=== PATIENT | female | born 1960 | race Caucasian/White ===

== ENCOUNTER 2017-09-30 10:40 | Observation (INO) | payer OTHER ==
--- NOTE | 2017-09-30 11:28 | EKG ---
Test Date: 2017-09-30 Test Time: 11:03:30 Nuclear Medicine Officer: [place] MEASUREMENT RESULTS: Intervals: Rate: 119 WI: 166 QRSD: 150 QT: 376 QTc: 528 Wheeler: P: 80 WI: 166 QRS: 81 T: 262 INTERPRETIVE STATEMENTS: Sinus tachycardia Left bundle branch block Abnormal ECG No previous ECG available for comparison Electronically Signed On 09-30-17 11:27:49 CDT by Satish Loyd
[2017-09-30 11:30] LABS: Absolute Lymphocytes (CBC) 1.2 K/uL (0.7-4.9); Absolute Monocytes 0.4 K/uL (0.1-1.3); Absolute Neutrophil 12.7 K/uL (1.8-8.0); Basophils % 0.2 % (0-1.3); Eosinophils % 0.3 % (0-4.4); Hematocrit 47.1 % (36.0-45.0); Lymphocytes % 8.1 % (15.3-44.8); MCH 31.2 pg (27.0-35.0); MCV 88.8 fL (80-100); MPV 7.3 fL (7.6-11.3); Monocytes % 2.8 % (3.3-12.3); RBC Red Blood Cell Count 5.31 M/uL (3.86-4.86)
[2017-09-30 11:37] LABS: Protime INR 0.97
--- NOTE | 2017-09-30 11:55 | ER ---
Nurse's Notes [facility] Name: Pauline Mcknight Age: 56 yrs Sex: Female : 1960 Arrival Date: 09/30/2017 Time: 10:44 Bed 27 Private MD: Out, [facility] Diagnosis: Essential (primary) hypertension;Other chest pain;Hypomagnesemia Presentation: 09/30 10:49 Presenting complaint: Patient states: nausea, pain, not feeling well started last ch night. my blood pressure as been 180' to 200's over 120's. I got hurt at work and my doctor put me on tazanadine for it, three times a day. that was making my blood pressure go low. I stoped taking my bp meds Saturday but kept taking the tazanadine. weakness dizzyness started Saturday and just etting worse. Nausea, vomiting, not feeling well now.. Transition of care: patient was not received from another setting of care. Onset of symptoms was September 24, 2017. Risk Assessment: Do you want to hurt yourself or someone else? Patient reports no desire to harm self or others. Initial Sepsis Screen: Does the patient meet any 2 criteria? No. Patient's initial sepsis screen is negative. Does the patient have a suspected source of infection? No. Patient's initial sepsis screen is negative. Care prior to arrival: None. 10:49 Method Of Arrival: Wheelchair 10:49 Acuity: ROCKY 3 ch Triage Assessment: 10:55 General: Appears in no apparent distress. comfortable, Behavior is calm, cooperative, ch appropriate for age. Pain: Complains of pain in head and chest Pain currently is 9 out of 10 on a pain scale. Pain began suddenly. GI: Reports nausea, vomiting. 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 ch Historical: - Allergies: 10:55 PENICILLINS; ch 10:55 Sulfa (Sulfonamide Antibiotics); ch 10:55 Iv dye; ch 10:55 Latex, Natural Rubber; ch 10:55 Morphine; ch - Home Meds: 10:55 tizanidine 2 mg oral tab 2 tabs every 8 hours [Active]; Cymbalta 60 mg oral cpDR 1 cap ch once daily [Active]; Librax (with clidinium) 5-2.5 mg Oral cap 1 cap 4 times per day [Active]; Bentyl 20 mg Oral tab 1 tab for as needed [Active]; Protonix 40 mg Oral grps 1 packet once daily [Active]; lisinopril 20 mg Oral tab 1 tab once daily [Active]; Crestor 20 mg oral tab 1 tab once daily [Active]; Seroquel Oral [Active]; - PMHx: 10:55 Hyperlipidemia; recover addict; 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 - Social history:: Smoking status: Patient uses tobacco products, electronic vap, with nicotine, Patient/guardian denies using alcohol, street drugs. - Ebola Screening: : Patient negative for fever greater than or equal to 101.5 degrees Fahrenheit, and additional compatible Ebola Virus Disease symptoms Patient denies exposure to infectious person Patient denies travel to an Ebola-affected area in the 21 days before illness onset No symptoms or risks identified at this time. Screenin:51 Abuse screen: Denies threats or abuse. Denies injuries from another. Nutritional iw screening: No deficits noted. Tuberculosis screening: No symptoms or risk factors identified. 14:59 Fall Risk IV access (20 points). iw Assessment: 11:49 Reassessment: Dr. Montero at bedside to assess pt, successful IV placement to REJ, iw family remains at bedside, new orders given. 12:31 Reassessment: pt still c/o headache 10/21, 2nd dose of fentanyl given, pt reports jaw iw pain and chest pain has resolved, pt remains hypertensive at 172/117, ERP notified, new orders for repeat EKG. 13:08 Reassessment: pt still c/o headache, BP down to 165/110, HR=82, family at bedside. iw 13:18 GI: Abdomen is non-distended. iw 14:40 Reassessment: Patient appears in no apparent distress at this time. Patient and/or iw family updated on plan of care and expected duration. Pain level reassessed. Patient is alert, oriented x 3, equal unlabored respirations, skin warm/dry/pink. Dr. Loyd at bedside to assess pt Patient states feeling better. Patient states symptoms have improved. Vital Signs: 10:55 BP 156 / 111; Pulse 124; Resp 22; Temp 97.6; Pulse Ox 97% on R/A; Weight 68.04 kg; ch Height 5 ft. 7 in. (170.18 cm); Pain 9/10; 11:32 BP 156 / 116; Pulse 105; Resp 18 S; Pulse Ox 96% on R/A; Pain 9/10; iw 12:17 BP 171 / 121; Pulse 74; Resp 16; Pulse Ox 95% on R/A; iw 13:07 BP 165 / 110; Pulse 78; Resp 18; Pulse Ox 96% on R/A; Pain 8/10; iw 13:12 BP 164 / 106; Pulse 81; Resp 18; Pulse Ox 95% on R/A; iw 13:18 BP 157 / 100; Pulse 84; Resp 16; Pulse Ox 96% on R/A; Pain 10/10; iw 14:58 BP 148 / 90; Pulse 84; Resp 16; Pulse Ox 96% on R/A; iw 10:55 Body Mass Index 23.49 (68.04 kg, 170.18 cm) ED Course: 10:44 Patient arrived in ED. sb2 10:44 Out, [facility] is Private Physician. sb2 10:51 Triage completed. ch 10:55 Arm band placed on left wrist. Patient placed. 11:00 Patient has correct armband on for positive identification. Placed in gown. Bed in low iw position. Call light in reach. Side rails up X2. 11:05 Shayna Marquez, ANGELA is Primary Nurse. iw 11:08 Kenneth Montero MD is Attending Physician. sissy 11:14 EKG done, by emergency room technician. reviewed by Kenneth Montero MD. at1 11:30 Missed attempt(s): 22 gauge in right antecubital area. 24 gauge in left forearm. iw Bleeding controlled, band aid applied, catheter tip intact. 11:45 Missed attempt(s): 24 gauge in right wrist. Bleeding controlled, band aid applied, jp3 catheter tip intact. 11:53 X-ray completed. Portable x-ray completed in exam room. Patient tolerated procedure mh1 well. 11:53 Kayla Garcia MD is Hospitalizing Provider. sissy 11:55 XRAY Chest (1 view) In Process Unspecified. EDMS 11:55 Inserted saline lock: 18 gauge in right EJ, using aseptic technique. IV inserted by Dr. jennifer Montero. 12:21 Notified ED physician of a critical lab result(s). Troponin 0.52. dm5 13:08 No provider procedures requiring assistance completed. Patient admitted, IV remains in iw place. 13:14 EKG done, by emergency room technician. reviewed by Kenneth Montero MD Repeat EKG. at1 Administered Medications: 11:48 CANCELLED (Duplicate Order): NS 0.9% 1000 ml IV at 1 bolus Per protocol; 1000 mL bolus sissy 12:00 Drug: Lopressor 5 mg Route: IVP; Site: right jugular; iw 12:00 Drug: Lopressor (metoprolol TARTRATE) 50 mg Route: PO; iw 15:06 Follow up: Response: No adverse reaction iw 12:00 Drug: fentaNYL (PF) 25 mcg Route: IVP; Site: right jugular; iw 12:15 Follow up: Response: No adverse reaction; Pain is unchanged, physician notified iw 12:05 Drug: Ativan 0.5 mg Route: IVP; Site: right jugular; iw 13:30 Follow up: Response: No adverse reaction iw 12:10 Drug: Lopressor 5 mg Route: IVP; Site: right jugular; iw 12:25 Drug: Lopressor 5 mg Route: IVP; Site: right jugular; iw 12:40 Follow up: Response: No adverse reaction; Blood pressure is unchanged iw 13:15 Follow up: Response: No adverse reaction; Blood pressure is unchanged iw 12:30 Drug: fentaNYL (PF) 25 mcg Route: IVP; Site: right jugular; iw 12:45 Follow up: Response: No adverse reaction; Pain is decreased iw 13:00 Drug: Lovenox 1 mg/kg Route: Sub-Q; Site: right lower abdomen; iw 15:00 Follow up: Response: No adverse reaction iw 13:00 Drug: Nitro-Bid Ointment 2 % 1 inches Route: Transdermal; Site: anterior chest wall; iw 13:05 Drug: hydrALAZINE 10 mg Route: IV; Rate: per protocol; Site: right jugular; iw 13:35 Follow up: IV Status: Completed infusion iw 13:06 Drug: Tylenol 650 mg Route: PO; iw 13:45 Follow up: Response: No adverse reaction iw 13:06 Drug: hydrALAZINE 10 mg Route: PO; iw 15:02 Follow up: Response: No adverse reaction; Blood pressure is lowered iw 13:07 Drug: Magnesium Sulfate 2 grams Route: IVPB; Infused Over: 2 hrs; Site: right jugular; iw 14:15 Follow up: IV Status: Completed infusion iw 13:19 Drug: Pepcid 20 mg Route: IVP; Site: right jugular; iw 13:35 Follow up: Response: No adverse reaction iw 13:19 Drug: Aspirin Chewable Tablet 162 mg Route: PO; iw 13:48 Follow up: Response: No adverse reaction iw 13:19 Drug: PlaVIX 600 mg Route: PO; iw 14:00 Follow up: Response: No adverse reaction iw 14:20 Drug: Rocephin - (cefTRIAXone) 1 grams Route: IVPB; Infused Over: 30 mins; Site: right iw jugular; 14:30 Follow up: IV Status: Completed infusion iw 14:20 Drug: Dilaudid 0.5 mg Route: IVP; Site: right jugular; iw 14:45 Follow up: Response: No adverse reaction; Pain is decreased iw 14:20 Drug: Zofran 4 mg Route: IVP; Site: right jugular; iw 14:45 Follow up: Response: No adverse reaction iw 14:58 Not Given (Physician Discretion): Dilaudid 0.5 mg IVP once iw 15:01 Not Given (Other Intervention Used): Ativan 0.5 mg IVP once iw Outcome: 11:54 Decision to Hospitalize by Provider. sissy 14:59 Admitted to Tele accompanied by tech, via stretcher, with chart, Report called to jennifer Nolasco RN 14:59 Condition: improved 14:59 Discharge instructions given to patient, family, Instructed on the need for admit, Demonstrated understanding of instructions. 15:21 Patient left the ED. ss Signatures: Dispatcher [employer] Lorena Solo, RN Socorro Noe ch, RN RN Kenneth Vegas MD MD cha Harvey, Martha 1 Shayna Marquez RN RN iw Smirch, Shelby, RN RN ss Gonzales, Amanda, coremaker supervisor EKG Tat1 Kellen Breen sb2 Romeo Sotelo jp3
--- NOTE | 2017-09-30 11:55 | EDPHYS ---
Physician Documentation [facility] Name: Pauline Mcknight Age: 56 yrs Sex: Female : 1960 Arrival Date: 09/30/2017 Time: 10:44 Bed 27 Private MD: Out, [facility] ED Physician Kenneth Montero HPI: 09/30 11:50 This 56 yrs old Female presents to ER via Wheelchair with complaints of Blood sissy Pressure Problem, Nausea/Vomiting/Diarrhea. 11:50 The patient presents to the emergency department with nausea. Onset: The sissy symptoms/episode began/occurred 2 day(s) ago. Possible causes: unknown. Associated signs and symptoms: Pertinent positives: abdominal pain, nausea. Severity of symptoms: At their worst the symptoms were mild moderate in the emergency department the symptoms are unchanged. The patient has experienced similar episodes in the past, a few times. 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 ch Historical: - Allergies: 10:55 PENICILLINS; ch 10:55 Sulfa (Sulfonamide Antibiotics); ch 10:55 Iv dye; ch 10:55 Latex, Natural Rubber; ch 10:55 Morphine; ch - Home Meds: 10:55 tizanidine 2 mg oral tab 2 tabs every 8 hours [Active]; Cymbalta 60 mg oral cpDR 1 cap ch once daily [Active]; Librax (with clidinium) 5-2.5 mg Oral cap 1 cap 4 times per day [Active]; Bentyl 20 mg Oral tab 1 tab for as needed [Active]; Protonix 40 mg Oral grps 1 packet once daily [Active]; lisinopril 20 mg Oral tab 1 tab once daily [Active]; Crestor 20 mg oral tab 1 tab once daily [Active]; Seroquel Oral [Active]; - PMHx: 10:55 Hyperlipidemia; recover addict; 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 - Social history:: Smoking status: Patient uses tobacco products, electronic vap, with nicotine, Patient/guardian denies using alcohol, street drugs. - Ebola Screening: : Patient negative for fever greater than or equal to 101.5 degrees Fahrenheit, and additional compatible Ebola Virus Disease symptoms Patient denies exposure to infectious person Patient denies travel to an Ebola-affected area in the 21 days before illness onset No symptoms or risks identified at this time. ROS: 11:51 Constitutional: Negative for fever, chills, and weight loss, Eyes: Negative for injury, sissy pain, redness, and discharge, ENT: Negative for injury, pain, and discharge, Neck: Negative for injury, pain, and swelling, Respiratory: Negative for shortness of breath, cough, wheezing, and pleuritic chest pain, Back: Negative for injury and pain, : Negative for injury, bleeding, discharge, and swelling, MS/Extremity: Negative for injury and deformity, Skin: Negative for injury, rash, and discoloration, Neuro: Negative for headache, weakness, numbness, tingling, and seizure, Psych: Negative for depression, anxiety, suicide ideation, homicidal ideation, and hallucinations, Allergy/Immunology: Negative for hives, rash, and allergies, Endocrine: Negative for neck swelling, polydipsia, polyuria, polyphagia, and marked weight changes, Hematologic/Lymphatic: Negative for swollen nodes, abnormal bleeding, and unusual bruising. 11:51 Cardiovascular: Positive for chest pain. 11:51 Abdomen/GI: Positive for abdominal pain, nausea. Exam: 11:51 Constitutional: This is a well developed, well nourished patient who is awake, alert, sissy and in no acute distress. Head/Face: Normocephalic, atraumatic. Eyes: Pupils equal round and reactive to light, extra-ocular motions intact. Lids and lashes normal. Conjunctiva and sclera are non-icteric and not injected. Cornea within normal limits. Periorbital areas with no swelling, redness, or edema. ENT: Nares patent. No nasal discharge, no septal abnormalities noted. Tympanic membranes are normal and external auditory canals are clear. Oropharynx with no redness, swelling, or masses, exudates, or evidence of obstruction, uvula midline. Mucous membranes moist. Neck: Trachea midline, no thyromegaly or masses palpated, and no cervical lymphadenopathy. Supple, full range of motion without nuchal rigidity, or vertebral point tenderness. No Meningismus. Chest/axilla: Normal chest wall appearance and motion. Nontender with no deformity. No lesions are appreciated. Cardiovascular: Regular rate and rhythm with a normal S1 and S2. No gallops, murmurs, or rubs. Normal PMI, no JVD. No pulse deficits. Respiratory: Lungs have equal breath sounds bilaterally, clear to auscultation and percussion. No rales, rhonchi or wheezes noted. No increased work of breathing, no retractions or nasal flaring. Abdomen/GI: Soft, non-tender, with normal bowel sounds. No distension or tympany. No guarding or rebound. No evidence of tenderness throughout. Back: No spinal tenderness. No costovertebral tenderness. Full range of motion. Female : Normal external genitalia. Skin: Warm, dry with normal turgor. Normal color with no rashes, no lesions, and no evidence of cellulitis. MS/ Extremity: Pulses equal, no cyanosis. Neurovascular intact. Full, normal range of motion. Neuro: Awake and alert, GCS 15, oriented to person, place, time, and situation. Cranial nerves II-XII grossly intact. Motor strength 5/5 in all extremities. Sensory grossly intact. Cerebellar exam normal. Normal gait. Psych: Awake, alert, with orientation to person, place and time. Behavior, mood, and affect are within normal limits. Vital Signs: 10:55 BP 156 / 111; Pulse 124; Resp 22; Temp 97.6; Pulse Ox 97% on R/A; Weight 68.04 kg; ch Height 5 ft. 7 in. (170.18 cm); Pain 9/10; 11:32 BP 156 / 116; Pulse 105; Resp 18 S; Pulse Ox 96% on R/A; Pain 9/10; iw 12:17 BP 171 / 121; Pulse 74; Resp 16; Pulse Ox 95% on R/A; iw 13:07 BP 165 / 110; Pulse 78; Resp 18; Pulse Ox 96% on R/A; Pain 8/10; iw 13:12 BP 164 / 106; Pulse 81; Resp 18; Pulse Ox 95% on R/A; iw 13:18 BP 157 / 100; Pulse 84; Resp 16; Pulse Ox 96% on R/A; Pain 10/10; iw 14:58 BP 148 / 90; Pulse 84; Resp 16; Pulse Ox 96% on R/A; iw 10:55 Body Mass Index 23.49 (68.04 kg, 170.18 cm) Procedures: 11:52 Peripheral line: by aseptic technique a peripheral line was placed in the right [facility] external jugular vein. MDM: 11:08 Patient medically screened. [facility] 11:52 Data reviewed: vital signs, nurses notes, lab test result(s), EKG, radiologic studies, [facility] plain films. 09/30 11:10 Order name: Basic Metabolic Panel; Complete Time: 12:25 [facility] 09/30 11:10 Order name: CBC with Diff; Complete Time: 12:25 [facility] 09/30 11:10 Order name: Ckmb; Complete Time: 12:25 [facility] 09/30 11:10 Order name: CPK; Complete Time: 12:25 [facility] 09/30 11:10 Order name: LFT's; Complete Time: 12:25 [facility] 09/30 11:10 Order name: Magnesium; Complete Time: 12:25 [facility] 09/30 11:10 Order name: NT PRO-BNP; Complete Time: 12:25 [facility] 09/30 11:10 Order name: PT-INR; Complete Time: 12:25 [facility] 09/30 11:10 Order name: Ptt, Activated; Complete Time: 12:25 [facility] 09/30 11:10 Order name: Troponin (emerg Dept Use Only); Complete Time: 12:25 [facility] 09/30 11:10 Order name: XRAY Chest (1 view); Complete Time: 12:25 [facility] 09/30 11:10 Order name: Lipase; Complete Time: 12:25 [facility] 09/30 11:34 Order name: CBC Smear Scan; Complete Time: 12:25 [facility] 09/30 11:58 Order name: Echo with Doppler [facility] 09/30 13:25 Order name: CT Head Brain wo Cont iw 09/30 14:01 Order name: CT; Complete Time: 14:02 [facility] 09/30 11:10 Order name: EKG; Complete Time: 11:12 [facility] 09/30 11:10 Order name: Cardiac monitoring; Complete Time: 12:34 [facility] 09/30 11:10 Order name: EKG - Nurse/Tech; Complete Time: 12:34 [facility] 09/30 11:10 Order name: IV Saline Lock; Complete Time: 12:30 [facility] 09/30 11:10 Order name: Labs collected and sent; Complete Time: 12:30 [facility] 09/30 11:10 Order name: O2 Per Protocol; Complete Time: 12:30 [facility] 09/30 11:10 Order name: O2 Sat Monitoring; Complete Time: 12:30 [facility] 09/30 11:58 Order name: CONS Physician Consult [facility] 09/30 12:27 Order name: EKG; Complete Time: 12:28 [facility] 09/30 12:27 Order name: EKG - Nurse/Tech; Complete Time: 13:07 [facility] Administered Medications: 11:48 CANCELLED (Duplicate Order): NS 0.9% 1000 ml IV at 1 bolus Per protocol; 1000 mL bolus [facility] 12:00 Drug: Lopressor 5 mg Route: IVP; Site: right jugular; iw 12:00 Drug: Lopressor (metoprolol TARTRATE) 50 mg Route: PO; iw 15:06 Follow up: Response: No adverse reaction iw 12:00 Drug: fentaNYL (PF) 25 mcg Route: IVP; Site: right jugular; iw 12:15 Follow up: Response: No adverse reaction; Pain is unchanged, physician notified iw 12:05 Drug: Ativan 0.5 mg Route: IVP; Site: right jugular; iw 13:30 Follow up: Response: No adverse reaction iw 12:10 Drug: Lopressor 5 mg Route: IVP; Site: right jugular; iw 12:25 Drug: Lopressor 5 mg Route: IVP; Site: right jugular; iw 12:40 Follow up: Response: No adverse reaction; Blood pressure is unchanged iw 13:15 Follow up: Response: No adverse reaction; Blood pressure is unchanged iw 12:30 Drug: fentaNYL (PF) 25 mcg Route: IVP; Site: right jugular; iw 12:45 Follow up: Response: No adverse reaction; Pain is decreased iw 13:00 Drug: Lovenox 1 mg/kg Route: Sub-Q; Site: right lower abdomen; iw 15:00 Follow up: Response: No adverse reaction iw 13:00 Drug: Nitro-Bid Ointment 2 % 1 inches Route: Transdermal; Site: anterior chest wall; iw 13:05 Drug: hydrALAZINE 10 mg Route: IV; Rate: per protocol; Site: right jugular; iw 13:35 Follow up: IV Status: Completed infusion iw 13:06 Drug: Tylenol 650 mg Route: PO; iw 13:45 Follow up: Response: No adverse reaction iw 13:06 Drug: hydrALAZINE 10 mg Route: PO; iw 15:02 Follow up: Response: No adverse reaction; Blood pressure is lowered iw 13:07 Drug: Magnesium Sulfate 2 grams Route: IVPB; Infused Over: 2 hrs; Site: right jugular; iw 14:15 Follow up: IV Status: Completed infusion iw 13:19 Drug: Pepcid 20 mg Route: IVP; Site: right jugular; iw 13:35 Follow up: Response: No adverse reaction iw 13:19 Drug: Aspirin Chewable Tablet 162 mg Route: PO; iw 13:48 Follow up: Response: No adverse reaction iw 13:19 Drug: PlaVIX 600 mg Route: PO; iw 14:00 Follow up: Response: No adverse reaction iw 14:20 Drug: Rocephin - (cefTRIAXone) 1 grams Route: IVPB; Infused Over: 30 mins; Site: right iw jugular; 14:30 Follow up: IV Status: Completed infusion iw 14:20 Drug: Dilaudid 0.5 mg Route: IVP; Site: right jugular; iw 14:45 Follow up: Response: No adverse reaction; Pain is decreased iw 14:20 Drug: Zofran 4 mg Route: IVP; Site: right jugular; iw 14:45 Follow up: Response: No adverse reaction iw 14:58 Not Given (Physician Discretion): Dilaudid 0.5 mg IVP once iw 15:01 Not Given (Other Intervention Used): Ativan 0.5 mg IVP once iw Disposition: 09/30/17 11:54 Hospitalization ordered by Kayla Garcia for Observation. Preliminary diagnosis are Essential (primary) hypertension, Other chest pain, Hypomagnesemia. - Bed requested for Telemetry/MedSurg (observation). - Status is Observation. ss - Condition is Fair. - Problem is new. - Symptoms have improved. UTI on Admission? No Signatures: Dispatcher [employer] EDLorena Ferguson, Niyah Bryan RN, ch, RN RN dw Anderson, Corey, MD MD cha Williams, Irene, RN RN iw Smirch, Shelby, RN RN ss Corrections: (The following items were deleted from the chart) 11:48 11:10 NS 0.9% 1000 ml IV at 1 bolus Per protocol; 1000 mL bolus ordered. sissy sissy 12:30 11:54 Hospitalization Ordered by Kayla Garcia MD for Observation. Preliminary sissy diagnosis is Essential (primary) hypertension; Other chest pain. Bed requested for Telemetry/MedSurg (observation). Status is Observation. Condition is Fair. Problem is new. Symptoms have improved. UTI on Admission? No. sissy 12:57 12:30 09/30/2017 11:54 Hospitalization Ordered by Kayla Garcia MD for Observation. dw Preliminary diagnosis is Essential (primary) hypertension; Other chest pain; Hypomagnesemia. Bed requested for Telemetry/MedSurg (observation). Status is Observation. Condition is Fair. Problem is new. Symptoms have improved. UTI on Admission? No. sissy 14:58 11:10 Urine Dipstick-Ancillary ordered. [facility] 15:21 12:57 09/30/2017 11:54 Hospitalization Ordered by Kayla Garcia MD for Observation. ss Preliminary diagnosis is Essential (primary) hypertension; Other chest pain; Hypomagnesemia. Bed requested for Telemetry/MedSurg (observation). Status is Observation. Condition is Fair. Problem is new. Symptoms have improved. UTI on Admission? No. dw
[2017-09-30] MEDS ORDERED: METOPROLOL TAR 50 MG TAB ONE (11:59)
[2017-09-30] MEDS ORDERED: LORazepam 2 MG/ML VIAL ONE (11:59)
[2017-09-30] MEDS ORDERED: FENTANYL CITR 100 MCG/2 ML ONE (11:59)
[2017-09-30] MEDS ORDERED: FAMOTIDINE 20 MG/2 ML VIAL IV ONE (12:00)
[2017-09-30] MEDS ORDERED: METOPROLOL TARTRATE 5 MG/5 ML INJ IV ONE (12:00)
--- NOTE | 2017-09-30 12:05 | RAD REPORT ---
EXAM DESCRIPTION: RAD - Chest Single View - 09/30/2017 11:57 am CLINICAL HISTORY: COUGH Chest pain. COMPARISON: No comparisons FINDINGS: Portable technique limits examination quality. The lungs are grossly clear. The heart is normal in size. No displaced fractures. IMPRESSION: No acute intrathoracic process suspected.
[2017-09-30 12:10] LABS: ALT/SGPT 22 U/L (12-78); AST/SGOT 23 U/L (15-37); Albumin 4.7 g/dL (3.4-5.0); Alkaline Phosphatase 90 U/L (45-117); BUN Blood Urea Nitrogen 5 mg/dL (7-18); Bicarbonate 26 mmol/L (21-32); Bilirubin Direct < 0.1 mg/dL (0-0.2); Bilirubin Total 0.4 mg/dL (0.2-1.0); Blood Morphology Comment NOT SEEN (NOT SEEN); CKMB Creatine Kinase MB 6.4 ng/mL (0.3-3.6); Creatine Phosphokinase 84 U/L (26-192); Glucose Level 117 mg/dL (74-106); Lipase 44 U/L (73-393); Magnesium 1.7 mg/dL (1.8-2.4); NT PRO-BNP 9581 pg/mL (<125); Platelet Estimate ADEQ; Potassium 3.7 mmol/L (3.5-5.1); Sodium Level 140 mmol/L (136-145); Urine White Blood Cell Casts OK
[2017-09-30] MEDS ORDERED: HYDRALAZINE HCL 10 MG TABLET ONE (12:59)
[2017-09-30] MEDS ORDERED: ENOXAPARIN 80 MG/0.8 ML SQ ONE (12:59)
[2017-09-30] MEDS ORDERED: ACETAMINOPHEN 325 MG TABLET ONE (12:59)
[2017-09-30] MEDS ORDERED: HYDRALAZINE HCL 20 MG/ML VIAL ONE (12:59)
[2017-09-30] MEDS ORDERED: NITROGLYCERIN 1 GM PKT TD ONE (13:00)
[2017-09-30] MEDS ORDERED: Magnesium Sulfate 2gm IVPB 2 G/50 ML BAG IV ONE (13:00)
[2017-09-30] MEDS ORDERED: ASPIRIN 81 MG CHEWABLE TABLET ONE (13:15)
[2017-09-30] MEDS ORDERED: CLOPIDOGREL 75 MG TABLET ONE (13:15)
--- NOTE | 2017-09-30 14:00 | RAD REPORT ---
EXAM DESCRIPTION: CT - Head Brain Wo Cont - 09/30/2017 1:52 pm CLINICAL HISTORY: HEADACHE COMPARISON: No comparisons TECHNIQUE: All CT scans are performed using dose optimization technique as appropriate and may inclu de automated exposure control or mA/KV adjustment according to patient size. FINDINGS: No intracranial hemorrhage, hydrocephalus or extra-axial fluid collection.Mild generalized brain atrophy is present with moderate periventricular and deep white matter chronic microvascular i schemic changes.No areas of brain edema or evidence of midline shift. Fluid levels are noted within multiple paranasal sinuses including the left maxillary antra, ethmoid air cell and sphenoid sinuses. The calvarium is intact. IMPRESSION: No acute intracranial abnormality. Mild acute sinusitis suspected.
[2017-09-30] MEDS ORDERED: CEFTRIAXONE/SWI 1gm 1 GM/10 ML SYR ONE (14:11)
[2017-09-30] MEDS ORDERED: HYDROMORPHONE HCL 0.5 MG/0.5 ML INJ ONE (14:11)
[2017-09-30] MEDS ORDERED: ONDANSETRON 4 MG/2 ML VIAL ONE (14:13)
--- NOTE | 2017-09-30 15:04 | ECHO ---
HEIGHT: ft in WEIGHT: lb oz DATE OF STUDY: 09/30/[address]: Kenneth Montero MD 2-DIMENSIONAL: YES M.MODE: YES DOPPLER: YES COLOR FLOW: YES TDS: PORTABLE: YES DEFINITY: BUBBLE STUDY: DIAGNOSIS: CHEST PAIN, HYPERTENSION CARDIAC HISTORY: CATHERIZATION: NO SURGERY: NO PROSTHETIC VALVE: NO PACEMAKER: NO MEASUREMENTS (cm) DIASTOLIC (NORMALS) SYSTOLIC (NORMALS) IVSd 0.9 (0.6-1.2) LA Diam 2.9 (1.9-4.0) LVEF 40-45% LVIDd 5.3 (3.5-5.7) LVIDs 3.6 (2.0-3.5) %FS 33% LVPWd 1.0 (0.6-1.2) Ao Diam 2.5 (2.0-3.7) 2 DIMENSIONAL ASSESSMENT: RIGHT ATRIUM: NORMAL LEFT ATRIUM: NORMAL RIGHT VENTRICLE: NORMAL LEFT VENTRICLE: NORMAL TRICUSPID VALVE: NORMAL MITRAL VALVE: NORMAL PULMONIC VALVE: NORMAL AORTIC VALVE: NORMAL PERICARDIAL EFFUSION: NONE AORTIC ROOT: NORMAL LEFT VENTRICULAR WALL MOTION: PARADOXICAL SEPTAL MOTION SEEN WITH LEFT BUNDLE BRANCH BLOCK. MILD GLOBAL HYPOKINESIS. DOPPLER/COLOR FLOW: NORMAL COMMENTS: MILDLY DEPRESSED LEFT VENTRICULAR EJECTION FRACTION. PARADOXICAL SEPTAL MOTION. TECHNOLOGIST: DUSTY DAWSON
[2017-09-30] MEDS ORDERED: ACETAMINOPHEN 500 MG TAB PO PRN (15:26)
[2017-09-30 16:00] VITALS: BMI 23.5
[2017-09-30] MEDS: ENOXAPARIN 40 MG/0.4 ML SQ SCH (16:00)
--- NOTE | 2017-09-30 16:15 | P.HP ---
Certification for Inpatient Patient admitted to: Observation With expected LOS: <2 Midnights Patient will require the following post-hospital care: None Practitioner: I am a practitioner with admitting privileges, knowledge of patient current condition, hospital course, and medical plan of care. Services: Services provided to patient in accordance with Admission requirements found in Title 42 Section 412.3 of the Code of Federal Regulations Patient History Date of Service: 09/30/17 Primary Care Provider: Paulette Sherwood Reason for admission: Chest pain with HTN urgency History of Present Illness: This is a 56 year female with a past medical history of hypertension, hyperlipidemia, IBS who presented to the ED having some chest pain that was radiating to her neck that started this morning. Patient stated that last night about 8:00 p.m. she has been noticing that her blood pressure has been consistently and she has been having some chest palpitations which has not resolved since then. This morning patient started noticing that she was having some chest pressure and her gel was starting to hurt and the she decided to come to the ER. Patient stated that on August she has been placed on the ascending denied due to injury at work and has been taking it 3 times a day daily however recently she started taking more of the to 17 as she was having increasing pain in her neck. Once she started doing that her blood pressure started becoming low and patient stop taking her lisinopril for her blood pressure about 4-5 days ago. Since then patient stated that her blood pressure has been elevated and her pulse has also been elevated at the house and she has been noticing some output patient's as well. Patient stated that her headache has gotten worse and she does decided to come to the Er for further workup. Allergies Latex, Natural Rubber Allergy (Verified 09/30/17 16:11) Unknown onion Allergy (Verified 09/30/17 16:11) Hives Penicillins Allergy (Verified 09/30/17 16:11) Anaphylaxis morphine Adverse Reaction (Verified 09/30/17 16:11) Hives/Rash Iv dye Allergy (Uncoded 09/30/17 16:11) Anaphylaxis Sulfa (Sulfonamide Adverse Reaction (Uncoded 09/30/17 16:11) Itching/Hives/Rash - Past Medical/Surgical History Has patient received pneumonia vaccine in the past: Yes Diabetic: No -: hyperlipidemia -: IBS -: htn -: migrane -: bowel obstruction X1 -: c-diff -: ulcerative colitis -: triny -: appy -: hysterectomy -: right elbow tendon repair - Family History Father -: Hypertension, Diabetes, Stroke, Cancer Notes: prostate Mother -: Hypertension, Stroke - Social History Smoking Status: Former smoker Alcohol use: No CD- Drugs: No Caffeine use: Yes Place of Residence: Home Review of Systems General: As per HPI Physical Examination - Vital Signs Temperature: 97.6 F Blood Pressure: 148/90 Pulse: 84 Respirations: 16 - Physical Exam General: Alert, In no apparent distress HEENT: Atraumatic, PERRLA, Mucous membr. moist/pink, EOMI, Sclerae nonicteric Neck: Supple, 2+ carotid pulse no bruit, No LAD, Without JVD or thyroid abnormality Respiratory: Clear to auscultation bilaterally, Normal air movement Cardiovascular: Regular rate/rhythm, Normal S1 S2 Gastrointestinal: Normal bowel sounds, No tenderness Musculoskeletal: No tenderness Integumentary: No rashes Neurological: Normal gait, Normal speech, Normal strength at 5/5 x4 extr, Normal tone, Normal affect Lymphatics: No axilla or inguinal lymphadenopathy - Studies Laboratory Data (last 24 hrs) 09/30/17 11:15: PT 11.4, INR 0.97, APTT 29.2 09/30/17 11:15: WBC 14.3 H, Hgb 16.6 H, Hct 47.1 H, Plt Count 307 09/30/17 11:15: Sodium 140, Potassium 3.7, BUN 5 L, Creatinine 1.10, Glucose 117 H, Magnesium 1.7 L, Total Bilirubin 0.4, AST 23, ALT 22, Alkaline Phosphatase 90, Lipase 44 L Assessment and Plan - Problems (Diagnosis) (1) NSTEMI (non-ST elevated myocardial infarction) Current Visit: Yes Status: Acute Plan: NSTEMI with Elevated troponin -Cardiology consulted. reccs Appreciated -Cardiac Catherization marques AM -ACS medication: ASA, BB and statin -ECHO (2) HTN (hypertension) Current Visit: Yes Status: Chronic Plan: restart on Home medication Qualifiers: Hypertension type: essential hypertension Qualified Code(s): I10 - Essential (primary) hypertension (3) Hyperlipidemia Current Visit: Yes Status: Chronic Plan: Restart on Home medication Qualifiers: Hyperlipidemia type: mixed hyperlipidemia Qualified Code(s): E78.2 - Mixed hyperlipidemia (4) Migraine Current Visit: Yes Status: Chronic Qualifiers: Migraine type: without aura Status migrainosus presence: without status migrainosus Intractability: intractable Qualified Code(s): G43.019 - Migraine without aura, intractable, without status migrainosus Discharge Plan: Home Plan to discharge in: 48 Hours - Advance Directives Does patient have a Living Will: No Does patient have a Durable POA for Healthcare: No - Code Status/Comfort Care Code Status Assessed: Yes Critical Care: No
--- NOTE | 2017-09-30 17:01 | EKG ---
Test Date: 2017-09-30 Test Time: 12:59:57 [employer] [place]: [place] MEASUREMENT RESULTS: Intervals: Rate: 72 TN: 196 QRSD: 162 QT: 476 QTc: 521 [place]: P: 51 TN: 196 QRS: 31 T: 213 INTERPRETIVE STATEMENTS: Normal sinus rhythm Left bundle branch block Abnormal ECG Compared to ECG 09/30/2017 11:03:30 Sinus tachycardia no longer present Electronically Signed On 09-30-17 17:00:55 CDT by Satish Loyd
[2017-09-30] MEDS: ONDANSETRON 4 MG/2 ML VIAL IV PRN ×2 (17:06→21:18)
[2017-09-30] MEDS: DICYCLOMINE HCL 10 MG CAP PO SCH ×2 (17:06→21:52)
[2017-09-30] MEDS: TOPIRAMATE 25 MG TAB PO SCH (17:06)
[2017-09-30] MEDS: PANTOPRAZOLE 40MG TABLET PO SCH (17:06)
--- NOTE | 2017-09-30 19:58 | CON ---
History Of Present Illness: Ms. Mcknight has had most of her medical care given to her in [facility]. She has not had any heart or vascular issues. She takes medicines for blood pressure, althoug h she stopped them recently because her blood pressure was a little bit too low while she was taking them. Held lisinopril, then noticed last night that her blood pressure was extremely high. She came to the emergency room with a variety of complaints, just not feeling well was one of them, heart jum ping and palpitating was another. There may have been some pressure and tightness in the chest as we ll. The patient feels back to normal now since she has been in the hospital. An EKG shows left bund le-branch block, we have no idea how long she has had a left bundle-branch block. It does not seem t o be a kind of a thing associated with an acute TN. She has had an echocardiogram that reveals mildl y depressed ejection fraction. There was paradoxical septal motion as we see with left bundle and EF in the 40s. She reports drug intolerance to a variety of medicines including sulfa, penicillin, an x-ray contrast material, although she knows she has not been exposed to x-ray contrast material since the . Since being here, troponin level was 0.52 and N-terminal proBNP is 9581. Potassium leve l was within normal limits. Magnesium level was a little bit low. She is receiving magnesium. She was a cigarette smoker, but switched to abating about a year ago. Alcohol use minimal. No illegal d rugs. Her family history is very positive for people with having heart disease, siblings and parents and second-degree family members. She has never had myocardial infarction, stroke, or any vascular intervention. On physical exam, she is alert, oriented, pleasant, appears to be her stated age. One of her blood pressures when she first came in was 156/111, the most recent blood pressure is 148/70. Her heart rate was 120 when she came in, now it is 70. She denies having chest pain now. She repo rts a history of hysterectomy, cholecystectomy, appendectomy, bowel obstruction surgery, right arm te ndon repair. She has had substance abuse problems and considers herself a recovering addict, was in rehab December 2016 for the last time. She is also allergic to latex and natural rubber. Physical Examination: General: Alert, oriented, pleasant. Lungs: Clear. Heart: Within normal limits. Abdomen: Soft. Extremities: Palpable distal pulses. No cyanosis, clubbing, or edema. Impression: The patient provides us a confusing picture, but I think this may indeed be an acute cor onary syndrome. I have recommended a cardiac cath. We will do it tomorrow. We will treat her for a llergies to x-ray contrast and we will avoid using latex. She seems to understand the procedure, its potential benefits, risks, indications, she agrees to proceed, and will be done by Dr. Jones strickland. AHSAN/ELIANE Voice ID: [id number] Report ID: [id number]
[2017-09-30] MEDS ORDERED: predniSONE 20 MG TAB PO ONE (20:00)
[2017-09-30] MEDS ORDERED: LORAZEPAM 0.5 MG TABLET PO ONE (20:07)
[2017-09-30] MEDS ORDERED: METHYLPREDNISOLONE 125 MG INJ IV ONE (20:15)
[2017-09-30] MEDS ORDERED: predniSONE 20 MG TAB PO PRN (20:16)
[2017-09-30] MEDS ORDERED: ATORVASTATIN 40 MG TAB PO SCH (21:00)
[2017-09-30] MEDS: TRAMADOL HCL 50 MG TAB PO PRN (21:51)
[2017-09-30 23:18] LABS: Urine Appearance CLEAR; Urine Bilirubin NEGATIVE (NEG); Urine Blood NEGATIVE (NEG); Urine Color YELLOW; Urine Glucose NEGATIVE (NEG); Urine Protein 2+ (NEG); Urine Specific Gravity 1.015 (1.005-1.030); Urine Urobilinogen 0.2 mg/dL (0.2-1.0); Urine pH 7.5 (5.0-7.0)
[2017-09-30 23:23] LABS: Urine Microscopic Reflex ORDER UMIC
[2017-09-30] MEDS: HYDRALAZINE HCL 20 MG/ML VIAL IV PRN (23:47)
[2017-10-01 00:14] LABS: Urine Bacteria <20 /HPF (<20); Urine Culture Reflex Order NOT NEEDED; Urine RBC NONE SEEN /HPF (NONE SEEN)
[2017-10-01 02:06] LABS: Barbiturates NEGATIVE (NEGATIVE); Benzodiazepines POSITIVE (NEGATIVE); Cocaine NEGATIVE (NEGATIVE); METHAMPHETAM NEGATIVE (NEGATIVE); Methadone NEGATIVE (NEGATIVE); Opiates NEGATIVE (NEGATIVE); Phencyclidine NEGATIVE (NEGATIVE); THC Cannibis NEGATIVE (NEGATIVE)
[2017-10-01] MEDS ORDERED: NA CHLORIDE 0.9% 1,000 ML ONE (05:12)
[2017-10-01] MEDS ORDERED: METOPROLOL XL 25 MG TAB PO SCH (06:00)
[2017-10-01] MEDS ORDERED: METHYLPREDNISOLONE 125 MG INJ IV ONE (06:30)
[2017-10-01] MEDS ORDERED: predniSONE 20 MG TAB PO PRN (06:30)
[2017-10-01 06:31] LABS: Absolute Lymphocytes (CBC) 0.9 K/uL (0.7-4.9); Absolute Monocytes 0.2 K/uL (0.1-1.3); Absolute Neutrophil 5.9 K/uL (1.8-8.0); Basophils % 0.1 % (0-1.3); Hematocrit 43.2 % (36.0-45.0); Lymphocytes % 12.6 % (15.3-44.8); MCV 90.5 fL (80-100); MPV 7.3 fL (7.6-11.3); Monocytes % 2.4 % (3.3-12.3); RBC Red Blood Cell Count 4.78 M/uL (3.86-4.86)
[2017-10-01 06:47] LABS: Albumin 4.1 g/dL (3.4-5.0); Bilirubin Total 0.4 mg/dL (0.2-1.0); Magnesium 2.1 mg/dL (1.8-2.4); Potassium 3.2 mmol/L (3.5-5.1); Protein, Total 8.4 g/dL (6.4-8.2)
[2017-10-01] MEDS ORDERED: POTASSIUM PHOS IN 0.9 % NACL 15 MMOL/250 ML BAG IV ONE (07:30)
[2017-10-01] MEDS: PANTOPRAZOLE 40MG TABLET PO SCH (07:30)
[2017-10-01] MEDS: ONDANSETRON 4 MG/2 ML VIAL IV PRN (07:47)
[2017-10-01] MEDS: TRAMADOL HCL 50 MG TAB PO PRN (07:47)
[2017-10-01] MEDS: DICYCLOMINE HCL 10 MG CAP PO SCH ×2 (08:44→14:05)
[2017-10-01] MEDS: ENOXAPARIN 40 MG/0.4 ML SQ SCH (08:45)
[2017-10-01] MEDS: TOPIRAMATE 25 MG TAB PO SCH (08:56)
[2017-10-01] MEDS ORDERED: ASPIRIN 81 MG CHEWABLE TABLET PO SCH (09:00)
[2017-10-01] MEDS ORDERED: LACTOBACILLUS/ACIDOPHILUS TAB PO SCH (09:00)
[2017-10-01] MEDS ORDERED: QUETIAPINE 100MG TAB PO SCH (09:00)
[2017-10-01] MEDS ORDERED: DULOXETINE 30 MG CAP PO SCH (09:00)
[2017-10-01] MEDS ORDERED: HEPA 1000U/500MLS 1,000 UNIT/500 ML BAG IV ONE (11:09)
[2017-10-01] MEDS ORDERED: LIDOCAINE 1% MPF 5 ML VIAL ONE (11:30)
[2017-10-01] MEDS ORDERED: ATROPINE SULF 1 MG/10 ML SYR IV ONE (12:02)
[2017-10-01] MEDS ORDERED: FENTANYL CITR 100 MCG/2 ML ONE (12:02)
[2017-10-01] MEDS ORDERED: MIDAZOLAM HCL 2 MG/2 ML INJ ONE ×2 (12:02→12:09)
[2017-10-01] MEDS ORDERED: NA CHLORIDE 0.9% 0 ML ONE (12:03)
[2017-10-01] MEDS ORDERED: METHYLPREDNISOLONE 125 MG INJ ONE (12:13)
[2017-10-01 13:26] VITALS: TEMP 97.8; O2SAT 98
[2017-10-01] MEDS: HYDRALAZINE HCL 20 MG/ML VIAL IV PRN (14:05)
[2017-10-01 15:27] VITALS: BP 143/81
--- NOTE | 2017-10-01 15:36 | P.SSS ---
Patient History Date of Service: 10/01/17 Primary Care Provider: Paulette Sherwood Reason for admission: Chest pain with HTN urgency History of Present Illness: This is a 56 year female with a past medical history of hypertension, hyperlipidemia, IBS who presented to the ED having some chest pain that was radiating to her neck that started this morning. Patient stated that last night about 8:00 p.m. she has been noticing that her blood pressure has been consistently and she has been having some chest palpitations which has not resolved since then. This morning patient started noticing that she was having some chest pressure and her gel was starting to hurt and the she decided to come to the ER. Patient stated that on August she has been placed on the ascending denied due to injury at work and has been taking it 3 times a day daily however recently she started taking more of the to 17 as she was having increasing pain in her neck. Once she started doing that her blood pressure started becoming low and patient stop taking her lisinopril for her blood pressure about 4-5 days ago. Since then patient stated that her blood pressure has been elevated and her pulse has also been elevated at the house and she has been noticing some output patient's as well. Patient stated that her headache has gotten worse and she does decided to come to the Er for further workup. Allergies Latex, Natural Rubber Allergy (Verified 09/30/17 16:11) Unknown onion Allergy (Verified 09/30/17 16:11) Hives Penicillins Allergy (Verified 09/30/17 16:11) Anaphylaxis morphine Adverse Reaction (Verified 09/30/17 16:11) Hives/Rash Iv dye Allergy (Uncoded 09/30/17 16:11) Anaphylaxis Sulfa (Sulfonamide Adverse Reaction (Uncoded 09/30/17 16:11) Itching/Hives/Rash Home Medications: Clidinium/Chlordiazepox [Librax*] 1 each PO QID 09/30/17 Dicyclomine [Bentyl*] 20 mg PO QID 09/30/17 Duloxetine [Cymbalta *] 60 mg PO DAILY 09/30/17 L.acidoph,Paracasei, B.lactis [Probiotic] 1 each PO DAILY 09/30/17 Pantoprazole [Protonix Tab*] 40 mg PO DAILY 09/30/17 Quetiapine [Seroquel*] 200 mg PO DAILY 09/30/17 Rosuvastatin [Crestor*] 10 mg PO BEDTIME 09/30/17 Topiramate [Topamax*] 50 mg PO BID #60 tab 10/01/17 - Past Medical/Surgical History Has patient received pneumonia vaccine in the past: Yes Diabetic: No -: hyperlipidemia -: IBS -: htn -: migrane -: bowel obstruction X1 -: c-diff -: ulcerative colitis -: triny -: appy -: hysterectomy -: right elbow tendon repair - Family History Father -: Hypertension, Diabetes, Stroke, Cancer Notes: prostate Mother -: Hypertension, Stroke - Social History Smoking Status: Former smoker Alcohol use: No CD- Drugs: No Caffeine use: Yes Place of Residence: Home Review of Systems 10-point ROS is otherwise unremarkable General: As per HPI Physical Examination - Vital Signs Temperature: 97.8 F Blood Pressure: 143/81 Pulse: 86 Respirations: 18 Pulse Ox (%): 98 - Physical Exam General: Alert, In no apparent distress HEENT: Atraumatic, PERRLA, Mucous membr. moist/pink, EOMI, Sclerae nonicteric Neck: Supple, 2+ carotid pulse no bruit, No LAD, Without JVD or thyroid abnormality Respiratory: Clear to auscultation bilaterally, Normal air movement Cardiovascular: Regular rate/rhythm, Normal S1 S2 Gastrointestinal: Normal bowel sounds, No tenderness Musculoskeletal: No tenderness Integumentary: No rashes Neurological: Normal gait, Normal speech, Normal strength at 5/5 x4 extr, Normal tone, Normal affect Lymphatics: No axilla or inguinal lymphadenopathy - Diagnosis (Problem(s)) (1) NSTEMI (non-ST elevated myocardial infarction) Onset Date: 10/01/17 Current Visit: Yes Status: Acute Plan: NSTEMI with Elevated troponin -Cardiology consulted. reccs Appreciated -Cardiac Catherization WNL No stenosis or CAD noted (2) HTN (hypertension) Onset Date: 10/01/17 Current Visit: Yes Status: Chronic Qualifiers: Hypertension type: essential hypertension Qualified Code(s): I10 - Essential (primary) hypertension (3) Hyperlipidemia Onset Date: 10/01/17 Current Visit: Yes Status: Chronic Qualifiers: Hyperlipidemia type: mixed hyperlipidemia Qualified Code(s): E78.2 - Mixed hyperlipidemia (4) Migraine Onset Date: 10/01/17 Current Visit: Yes Status: Chronic Qualifiers: Migraine type: without aura Status migrainosus presence: without status migrainosus Intractability: intractable Qualified Code(s): G43.019 - Migraine without aura, intractable, without status migrainosus Treatment Summary: Overall during the hospital stay patient remained stable. Patient was initially admitted to the hospital for chest pain rule out ACS. Initial troponin in the ER were elevated. Patient had cardiac catheterization done here in the hospital and was negative for coronary artery disease. Patient tolerated the procedure well and there were no complications postop. Patient then was discharged home under stable condition. Of note patient had migraine attack while she was here in the hospital was given Topamax which somewhat resolved her pain however patient was started on tramadol. However with a history of past drug abuse the family stated that she cannot have any tramadol for pain medication. Patient then was given Topamax prescription was asked to follow up with urology in about 1-2 weeks post discharge. - Disposition Disposition: ROUTINE DISCHARGE Condition: GOOD Diet: Regular Activity: Ad larry
--- NOTE | 2017-10-01 23:43 | OP ---
Surgeon: David Goldman MD History Of Present Illness: The patient was seen by Dr. Loyd on 09/30/2017 because of left bundle- branch block, elevated troponin, low ejection fraction. She was scheduled for a heart catheterizatio n today as an inpatient. Description Of Procedure: She was brought down to the catheterization lab, given 4 mg of Versed and 50 mg of fentanyl for sedation. She was given Solu-Medrol because of iodine allergy. A 6-German she ath was introduced in the right common femoral artery. Angio-Seal was used to close the case. The 6 -German catheters of [place] were used to cannulate the left main and the right main. She had a very dominant left system with a very large circumflex, normal LAD, normal circumflex, normal small RCA t hat is nondominant. There were no complications. Blood loss was 5 cc. Postoperative Diagnoses: 1.Left bundle-branch block. 2.Congestive heart failure. 3.Acute systolic ejection fraction of 45%. 4.Normal coronaries. Additional Participating Surgeon: Chandni Freitas. Total conscious sedation was 30 minutes. The patient will be readmitted back to the floor for observ ation for 2 hours for bedrest. She will go home today, and she will follow up with me in the office in 2 weeks. SWATI/ELIANE Voice ID: [id number] Report ID: [id number]
== END 2017-10-01 15:56 | disposition home or self-care (01) ==
LOC: ER 10:40 → ERHOLD 11:56 → 4TH 14:56
PROVIDERS: ADMIT Family Medicine; ATTEND Family Medicine
PROC: 4A023N7 Measurement of Cardiac Sampling and Pressure, Left Heart, Percutaneous Approach (ICD-10-PCS; principal; 2017-10-01)
PROC: B2111ZZ Fluoroscopy of Multiple Coronary Arteries using Low Osmolar Contrast (ICD-10-PCS; 2017-10-01)
DX: I21.4 Non-ST elevation (NSTEMI) myocardial infarction (principal); I11.0 Hypertensive heart disease with heart failure; I50.21 Acute systolic (congestive) heart failure; I44.7 Left bundle-branch block, unspecified; E78.2 Mixed hyperlipidemia; I16.0 Hypertensive urgency; F19.11 Other psychoactive substance abuse, in remission; K21.9 Gastro-esophageal reflux disease without esophagitis; K58.9 Irritable bowel syndrome, unspecified; Z87.891 Personal history of nicotine dependence; E83.42 Hypomagnesemia; G43.019 Migraine without aura, intractable, without status migrainosus; Z88.5 Allergy status to narcotic agent; Z91.041 Radiographic dye allergy status; Z88.0 Allergy status to penicillin; Z88.2 Allergy status to sulfonamides; Z91.018 Allergy to other foods; Z91.040 Latex allergy status
CPT/HCPCS: 36415; 70450; 71045; 80048; 80053; 80061; 80076; 80307; 81003; 81015; 82550; 82553; 83690; 83735; 83880; 84100; 84484; 85025; 85610; 85730; 93005; 93306; 93454; 96365; 96372; 96375; 99285; C1760; C1893; G0378; J0360; J0583; J0696; J1170; J1650; J2250; J2405; J2930; J3010; J3475; J7030; J7512

== ENCOUNTER 2017-10-05 22:32 | Inpatient (IN) | payer OTHER, SELFPAY ==
[2017-10-05 23:14] LABS: Absolute Lymphocytes (CBC) 3.8 K/uL (0.7-4.9); Absolute Monocytes 0.6 K/uL (0.1-1.3); Absolute Neutrophil 9.3 K/uL (1.8-8.0); Basophils % 0.2 % (0-1.3); Eosinophils % 1.3 % (0-4.4); Lymphocytes % 27.2 % (15.3-44.8); MCH 31.5 pg (27.0-35.0); MCV 91.3 fL (80-100); MPV 7.6 fL (7.6-11.3); Monocytes % 4.5 % (3.3-12.3); RBC Red Blood Cell Count 4.49 M/uL (3.86-4.86)
[2017-10-05] MEDS ORDERED: ONDANSETRON 4 MG/2 ML VIAL ONE (23:17)
[2017-10-05 23:39] LABS: ALT/SGPT 18 U/L (12-78); AST/SGOT 26 U/L (15-37); Albumin 3.6 g/dL (3.4-5.0); Alkaline Phosphatase 120 U/L (45-117); BUN Blood Urea Nitrogen 12 mg/dL (7-18); Bicarbonate 21 mmol/L (21-32); Bilirubin Direct < 0.1 mg/dL (0-0.2); Bilirubin Total 0.2 mg/dL (0.2-1.0); Glucose Level 123 mg/dL (74-106); Lipase 118 U/L (73-393); Magnesium 1.8 mg/dL (1.8-2.4); NT PRO-BNP 4070 pg/mL (<125); Protein, Total 7.1 g/dL (6.4-8.2); Sodium Level 136 mmol/L (136-145)
[2017-10-05 23:41] LABS: Potassium 2.7 mmol/L (3.5-5.1)
[2017-10-06] MEDS ORDERED: KCL 20 MEQ/100 mL IVPB 20 MEQ/100 ML BAG IV ONE (00:13)
[2017-10-06] MEDS ORDERED: NA CHLORIDE 0.9% 1,000 ML ONE (00:13)
[2017-10-06] MEDS ORDERED: MEPERIDINE HCL 50 MG/ML AMP ONE (01:01)
--- NOTE | 2017-10-06 01:14 | ER ---
Nurse's Notes [facility] Name: Pauline Mcknight Age: 56 yrs Sex: Female : 1960 Arrival Date: 10/05/2017 Time: 22:37 Bed 3 Private MD: Diagnosis: Dehydration;Hypotension;Diarrhea, unspecified Presentation: 10/05 22:38 Presenting complaint: EMS states: that pt started to have diarrhea approx 1 hr prior to fc their arrival. Pt had gone to bathroom and while sitting on toilet passed out. Was helped up by . When EMS arrived she was sitting up awake on toilet. their initial bp was 70/40. Transition of care: patient was not received from another setting of care. Onset of symptoms was October 05, 2017 at 21:00. Risk Assessment: Do you want to hurt yourself or someone else? Patient reports no desire to harm self or others. Initial Sepsis Screen: Does the patient meet any 2 criteria? No. Patient's initial sepsis screen is negative. Does the patient have a suspected source of infection? No. Patient's initial sepsis screen is negative. Care prior to arrival: Medication(s) given: Normal saline infusion, 400 ml IV initiated. 20 GA, in the left forearm, Glucose check: 158. 22:38 Method Of Arrival: EMS: [facility] 22:38 Acuity: ROCKY 2 Triage Assessment: 10/06 02:26 General: Behavior is calm, cooperative, appropriate for age. 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 LMP N/A - Hysterectomy fc Historical: - Allergies: 22:48 iv dye; fc 22:48 PENICILLINS; 22:48 Morphine; 22:48 Latex, Natural Rubber; fc 22:48 Sulfa (Sulfonamide Antibiotics); fc - Home Meds: 22:48 Bentyl 20 mg Oral tab 1 tab as needed for as needed [Active]; Crestor 20 mg Oral tab 1 fc tab once daily [Active]; Cymbalta 60 mg Oral cpDR 1 cap once daily [Active]; Librax (with clidinium) 5-2.5 mg Oral cap 1 cap 4 times per day [Active]; lisinopril 20 mg Oral tab 1 tab once daily [Active]; Protonix 40 mg Oral grps 1 packet once daily [Active]; Seroquel Oral once daily [Active]; tizanidine 2 mg Oral tab 2 tabs every 8 hours [Active]; - PMHx: 22:48 IBSD; rehab in december for one month; recover addict; Migraines; Hypertension; fc Hyperlipidemia; GERD; bowel obstructons; colitis; - PSHx: 22:48 Bowel resection; Cholecystectomy; Appendectomy; Hysterectomy; fc - Immunization history:: Last tetanus immunization: up to date. - Social history:: Smoking status: Patient/guardian denies using tobacco, Patient/guardian denies using alcohol. - Ebola Screening: : Patient negative for fever greater than or equal to 101.5 degrees Fahrenheit, and additional compatible Ebola Virus Disease symptoms Patient denies exposure to infectious person Patient denies travel to an Ebola-affected area in the 21 days before illness onset. - Family history:: not pertinent. - Hospitalizations: : The patient was recently seen at [facility]. Screenin:38 Abuse screen: Denies threats or abuse. Nutritional screening: No deficits noted. fc Tuberculosis screening: No symptoms or risk factors identified. Fall Risk None identified. Assessment: 22:35 General: Appears in no apparent distress. comfortable. Pain: Complains of pain in ao abdomen Pain currently is 8 out of 10 on a pain scale. Neuro: Level of Consciousness is awake, alert, obeys commands, Oriented to person, place, time, situation, Appropriate for age Moves all extremities. Full function Speech is normal, Facial symmetry appears normal. Cardiovascular: Capillary refill < 3 seconds Patient's skin is warm and dry. Respiratory: Airway is patent Respiratory effort is even, unlabored, Respiratory pattern is regular, symmetrical. GI: Abdomen is round Reports lower abdominal pain, upper abdominal pain, diarrhea, nausea, vomiting. : No signs and/or symptoms were reported regarding the genitourinary system. EENT: No signs and/or symptoms were reported regarding the EENT system. Derm: Skin is intact, Skin is pink, warm \T\ dry. normal, Skin temperature is warm. Musculoskeletal: Circulation, motion, and sensation intact. Range of motion: intact in all extremities. 23:30 Reassessment: PT TO CT WITH TANK INSULATOR RUBBER. bp 23:45 Reassessment: Patient appears in no apparent distress at this time. Patient and/or ao family updated on plan of care and expected duration. Pain level reassessed. Patient denies pain at this moment. 10/06 00:45 Reassessment: Patient appears in no apparent distress at this time. Patient and/or ao family updated on plan of care and expected duration. Pain level reassessed. 01:40 Reassessment: Patient appears in no apparent distress at this time. Patient and/or ao family updated on plan of care and expected duration. Pain level reassessed. Patient is alert, oriented x 3, equal unlabored respirations, skin warm/dry/pink. Patient to be admitted to the hospital. Patient agree with the POC. 02:29 Reassessment: Patient appears in no apparent distress at this time. Patient and/or ao family updated on plan of care and expected duration. Pain level reassessed. Patient is alert, oriented x 3, equal unlabored respirations, skin warm/dry/pink. Called report to BRYANNA Soto. Patient to be taken to her room. Patient currently ruining Cipro and Flagyl IV. Vital Signs: 10/05 22:38 BP 86 / 51; Pulse 86; Resp 18; Temp 97.8(O); Pulse Ox 98% on R/A; Weight 68.04 kg (R); fc Height 5 ft. 7 in. (170.18 cm) (R); Pain 8/10; 23:00 BP 83 / 62; Pulse 91; Resp 18; Pulse Ox 100% on R/A; Pain 0/10; ao 23:15 BP 109 / 64; Pulse 94; Resp 18; Pulse Ox 100% on R/A; ao 23:33 BP 107 / 51; Pulse 84; Resp 16; Pulse Ox 98% on R/A; Pain 0/10; ao 10/06 00:00 BP 119 / 76; Pulse 98; Resp 18; Pulse Ox 98% ; ao 00:49 BP 113 / 73; Pulse 101; Resp 18; Pulse Ox 100% on R/A; ao 01:30 BP 124 / 84; Pulse 98; Resp 17; Pulse Ox 100% on R/A; ao 02:29 BP 130 / 86; Pulse 95; Resp 16; Pulse Ox 99% on R/A; Pain 0/10; ao 10/05 22:38 Body Mass Index 23.49 (68.04 kg, 170.18 cm) ED Course: 10/05 22:37 Patient arrived in ED. fc 22:38 Arm band placed on Patient placed in an exam room, on a stretcher. fc 22:38 Patient has correct armband on for positive identification. Bed in low position. Call fc light in reach. Side rails up X2. monitoring and evaluation advisor on. Pulse ox on. NIBP on. 22:39 Juan Manuel Thakkar MD is Attending Physician. rn 22:40 Triage completed. fc 22:46 Maintain EMS IV. Dressing intact. Good blood return noted. Site clean \T\ dry. Gauge \T\ fc site: 20 gauge to left forearm. 23:09 Radiology exam delayed due to ER nurses providing patient care at this time. Will check kw1 back in 10 min. 23:10 Rudi Granda, ANGELA is Primary Nurse. ao 23:30 Assisted with bedpan. Cleaned of incontinence. bp 23:[address] via stretcher. kw1 23:40 CT Abd/Pelvis - Without Cont In Process Unspecified. EDMS 23:42 CT completed. Patient tolerated procedure well. Patient moved back from CT. kw1 10/06 01:13 Lucila Kim MD is Hospitalizing Provider. rn 01:52 Primary Nurse role handed off by Rudi Granda, ANGELA ao 01:56 Rudi Granda RN is Primary Nurse. ao 02:26 No provider procedures requiring assistance completed. Patient admitted, IV remains in ao place. Administered Medications: 10/05 23:22 Drug: NS 0.9% 500 ml Route: IV; Rate: bolus; Site: left antecubital; ao 10/06 00:00 Follow up: IV Status: Completed infusion; IV Intake: 500ml ao 10/05 23:25 Drug: Zofran 4 mg Route: IVP; Site: left forearm; bp 10/06 02:40 Follow up: Response: No adverse reaction ao 00:14 Drug: Potassium Chloride 20 mEq Route: IV; Rate: calculated rate; Site: left forearm; ao 02:15 Follow up: IV Status: Completed infusion; IV Intake: 50ml ao 00:15 Drug: NS 0.9% 1000 ml Route: IV; Rate: 75 ml/hr; Site: left forearm; ao 02:38 Follow up: IV Status: Infusion continued upon admission ao 01:04 Drug: Demerol 25 mg Route: IVP; Site: left forearm; ao 02:38 Follow up: Response: No adverse reaction ao 02:25 Drug: Cipro 400 mg Volume: 200 ml; Route: IVPB; Infused Over: 60 mins; Site: left ao forearm; 02:39 Follow up: IV Status: Infusion continued upon admission ao 02:25 Drug: Flagyl 500 mg Volume: 100 ml; Route: IVPB; Rate: 200 ml/hr; Infused Over: 30 ao mins; Site: left forearm; 02:39 Follow up: IV Status: Completed infusion ao Intake: 00:00 IV: 500ml; Total: 500ml. ao 02:15 IV: 50ml; Total: 550ml. ao Outcome: 01:13 Decision to Hospitalize by Provider. rn 02:27 Admitted to Med/surg accompanied by tech, room 201, with chart, Report called to earle Perla LVN 02:27 Condition: stable 02:41 Patient left the ED. ao Signatures: Dispatcher [employer] EDMS Maddie Velasco RN RN fc Nieto, Roman, MD MD rn Ortiz, Alex RN Mark Luque RN RN Jaylin Norton kw1 Corrections: (The following items were deleted from the chart) 01:47 Reassessment: Body release to [place] home. Patient had some jewelry on ao that was taken off by home and taken with them as family had left already ao 01:51 Patient : Time of 00:02 Pronounced by Juan Manuel Thakkar MD Body to ao home, ao 01:51 Condition: ao ao 01:52 Patient left the ED. ao ao
--- NOTE | 2017-10-06 01:14 | EDPHYS ---
Physician Documentation [facility] Name: Pauline Mcknight Age: 56 yrs Sex: Female : 1960 Arrival Date: 10/05/2017 Time: 22:37 Bed 3 Private MD: ED Physician Juan Manuel Thakkar HPI: 10/06 01:07 This 56 yrs old Female presents to ER via EMS with complaints of Diarrhea. rn 01:07 The patient presents to the emergency department with nausea, diarrhea, abdominal pain. rn Onset: The symptoms/episode began/occurred today. Possible causes: unknown. The symptoms are aggravated by nothing. The symptoms are alleviated by nothing. Associated signs and symptoms: Pertinent positives: abdominal pain, diarrhea, nausea, Pertinent negatives: fever, GI bleeding. Severity of symptoms: At their worst the symptoms were moderate in the emergency department the symptoms are unchanged. The patient has experienced similar episodes in the past. The patient has been recently seen by a physician:. Recently admitted for chest pain, neg cath, returns for diarrhea and hypotension, no fever, + lower abd pain.. 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 LMP N/A - Hysterectomy fc Historical: - Allergies: 22:48 iv dye; fc 22:48 PENICILLINS; fc 22:48 Morphine; fc 22:48 Latex, Natural Rubber; fc 22:48 Sulfa (Sulfonamide Antibiotics); fc - Home Meds: 22:48 Bentyl 20 mg Oral tab 1 tab as needed for as needed [Active]; Crestor 20 mg Oral tab 1 fc tab once daily [Active]; Cymbalta 60 mg Oral cpDR 1 cap once daily [Active]; Librax (with clidinium) 5-2.5 mg Oral cap 1 cap 4 times per day [Active]; lisinopril 20 mg Oral tab 1 tab once daily [Active]; Protonix 40 mg Oral grps 1 packet once daily [Active]; Seroquel Oral once daily [Active]; tizanidine 2 mg Oral tab 2 tabs every 8 hours [Active]; - PMHx: 22:48 IBSD; rehab in december for one month; recover addict; Migraines; Hypertension; fc Hyperlipidemia; GERD; bowel obstructons; colitis; - PSHx: 22:48 Bowel resection; Cholecystectomy; Appendectomy; Hysterectomy; fc - Immunization history:: Last tetanus immunization: up to date. - Social history:: Smoking status: Patient/guardian denies using tobacco, Patient/guardian denies using alcohol. - Ebola Screening: : Patient negative for fever greater than or equal to 101.5 degrees Fahrenheit, and additional compatible Ebola Virus Disease symptoms Patient denies exposure to infectious person Patient denies travel to an Ebola-affected area in the 21 days before illness onset. - Family history:: not pertinent. - Hospitalizations: : The patient was recently seen at [facility]. ROS: 10/06 01:07 Constitutional: Negative for fever, chills, and weight loss, Eyes: Negative for injury, rn pain, redness, and discharge, Neck: Negative for injury, pain, and swelling, Cardiovascular: Negative for chest pain, palpitations, and edema, Respiratory: Negative for shortness of breath, cough, wheezing, and pleuritic chest pain, Abdomen/GI: Negative for vomiting, and constipation, MS/Extremity: Negative for injury and deformity, Skin: Negative for injury, rash, and discoloration, Neuro: Negative for headache, numbness, tingling, and seizure. Exam: 01:07 Constitutional: This is a well developed, well nourished patient who is awake, alert, rn and in no acute distress. Head/Face: Normocephalic, atraumatic. Eyes: Pupils equal round and reactive to light, extra-ocular motions intact. Lids and lashes normal. Conjunctiva and sclera are non-icteric and not injected. Cornea within normal limits. Periorbital areas with no swelling, redness, or edema. ENT: dry mm Cardiovascular: Tachycardic, regular Respiratory: Mild tachypnea, speaks full sentences Abdomen/GI: soft, + tender bilateral lower quadrants, no rebound Skin: Warm, dry. Normal color with no rashes, no lesions, and no evidence of cellulitis. MS/ Extremity: Pulses equal, no cyanosis. Neurovascular intact. Full, normal range of motion. Equal circumference. Neuro: Awake and alert, GCS 15, oriented to person, place, time, and situation. Vital Signs: 10/05 22:38 BP 86 / 51; Pulse 86; Resp 18; Temp 97.8(O); Pulse Ox 98% on R/A; Weight 68.04 kg (R); fc Height 5 ft. 7 in. (170.18 cm) (R); Pain 8/10; 23:00 BP 83 / 62; Pulse 91; Resp 18; Pulse Ox 100% on R/A; Pain 0/10; ao 23:15 BP 109 / 64; Pulse 94; Resp 18; Pulse Ox 100% on R/A; ao 23:33 BP 107 / 51; Pulse 84; Resp 16; Pulse Ox 98% on R/A; Pain 0/10; ao 10/06 00:00 BP 119 / 76; Pulse 98; Resp 18; Pulse Ox 98% ; ao 00:49 BP 113 / 73; Pulse 101; Resp 18; Pulse Ox 100% on R/A; ao 01:30 BP 124 / 84; Pulse 98; Resp 17; Pulse Ox 100% on R/A; ao 02:29 BP 130 / 86; Pulse 95; Resp 16; Pulse Ox 99% on R/A; Pain 0/10; ao 10/05 22:38 Body Mass Index 23.49 (68.04 kg, 170.18 cm) [facility]: 10/05 22:39 Patient medically screened. rn 10/06 01:11 Differential diagnosis: diverticulitis, viral gastroenteritis, gastroenteritis. Data rn reviewed: vital signs, nurses notes, lab test result(s), radiologic studies, CT scan, and as a result, I will admit patient. Counseling: I had a detailed discussion with the patient and/or guardian regarding: the historical points, exam findings, and any diagnostic results supporting the discharge/admit diagnosis, radiology results, the need for further work-up and treatment in the hospital. Response to treatment: the patient's symptoms have mildly improved after treatment, and as a result, I will admit patient. Admission orders: after a detailed discussion of the patient's condition and case, the admit orders are written by me. 10/05 22:55 Order name: Basic Metabolic Panel; Complete Time: 23:54 rn 10/05 22:55 Order name: CBC with Diff; Complete Time: 23:54 rn 10/05 22:55 Order name: Creatinine for Radiology; Complete Time: 23:54 rn 10/05 22:55 Order name: Hepatic Function; Complete Time: 23:54 rn 10/05 22:55 Order name: Lipase; Complete Time: 23:54 rn 10/05 22:55 Order name: Urine Microscopic Only rn 10/05 22:55 Order name: Troponin (emerg Dept Use Only); Complete Time: 23:54 rn 10/05 22:55 Order name: N-Terminal Pro-brain Natriuretic Peptide; Complete Time: 23:54 rn 10/05 22:58 Order name: Magnesium rn 10/05 23:07 Order name: Magnesium; Complete Time: 23:54 EDMS 10/06 01:15 Order name: Lactate EDME 10/06 01:15 Order name: Procalcitonin EDME 10/06 01:26 Order name: Clostridium difficile DNA EDME 10/05 22:55 Order name: IV Saline Lock; Complete Time: 00:40 rn 10/05 22:55 Order name: Labs collected and sent; Complete Time: 00:40 rn 10/05 22:55 Order name: EKG; Complete Time: 22:56 rn 10/05 22:55 Order name: EKG - Nurse/Tech; Complete Time: 00:41 rn 10/05 22:55 Order name: CT Abd/Pelvis - Without Cont rn Administered Medications: 10/05 23:22 Drug: NS 0.9% 500 ml Route: IV; Rate: bolus; Site: left antecubital; ao 10/06 00:00 Follow up: IV Status: Completed infusion; IV Intake: 500ml ao 10/05 23:25 Drug: Zofran 4 mg Route: IVP; Site: left forearm; bp 10/06 02:40 Follow up: Response: No adverse reaction ao 00:14 Drug: Potassium Chloride 20 mEq Route: IV; Rate: calculated rate; Site: left forearm; ao 02:15 Follow up: IV Status: Completed infusion; IV Intake: 50ml ao 00:15 Drug: NS 0.9% 1000 ml Route: IV; Rate: 75 ml/hr; Site: left forearm; ao 02:38 Follow up: IV Status: Infusion continued upon admission ao 01:04 Drug: Demerol 25 mg Route: IVP; Site: left forearm; ao 02:38 Follow up: Response: No adverse reaction ao 02:25 Drug: Cipro 400 mg Volume: 200 ml; Route: IVPB; Infused Over: 60 mins; Site: left ao forearm; 02:39 Follow up: IV Status: Infusion continued upon admission ao 02:25 Drug: Flagyl 500 mg Volume: 100 ml; Route: IVPB; Rate: 200 ml/hr; Infused Over: 30 ao mins; Site: left forearm; 02:39 Follow up: IV Status: Completed infusion ao Disposition: 10/06/17 01:13 Hospitalization ordered by Lucila Kim for Inpatient Admission. Preliminary diagnosis are Dehydration, Hypotension, Diarrhea, unspecified. - Bed requested for Telemetry/MedSurg (Inpatient). - Status is Inpatient Admission. ao - Condition is Stable. - Problem is new. - Symptoms have improved. UTI on Admission? No Signatures: Dispatcher [employer] EDME Jaylin Benites RN Maddie Maher RN Juan Manuel Infante MD MD rn Ortiz, Alex, RN RN ao Peltier, Brian, RN RN bp Corrections: (The following items were deleted from the chart) 10/05 22:56 22:56 ED course: Upon arrival to ER, [facility] witnessed another syncopal episode, rn lasted approx 10-15 secs, they made decision to intubate for transport. Updated family.. rn 23:07 22:58 Magnesium ordered. [facility] 10/06 01:46 01:13 Hospitalization Ordered by Lucila Kim MD for Inpatient Admission. Preliminary diagnosis is Dehydration; Hypotension; Diarrhea, unspecified. Bed requested for Telemetry/MedSurg (Inpatient). Status is Inpatient Admission. Condition is Stable. Problem is new. Symptoms have improved. UTI on Admission? No. rn 01:52 01:46 10/06/2017 01:13 Hospitalization Ordered by Lucila Kim MD for Inpatient ao Admission. Preliminary diagnosis is Dehydration; Hypotension; Diarrhea, unspecified. Bed requested for Telemetry/MedSurg (Inpatient). Status is Inpatient Admission. Condition is Stable. Problem is new. Symptoms have improved. UTI on Admission? No. kl 02:41 01:52 10/06/2017 01:13 Hospitalization Ordered by Lucila Kim MD for Inpatient ao Admission. Preliminary diagnosis is Dehydration; Hypotension; Diarrhea, unspecified. Bed requested for Telemetry/MedSurg (Inpatient). Status is Inpatient Admission. Condition is Stable. Problem is new. Symptoms have improved. UTI on Admission? No. ao
--- NOTE | 2017-10-06 01:31 | P.HP ---
Certification for Inpatient Patient admitted to: Inpatient With expected LOS: >2 Midnights Practitioner: I am a practitioner with admitting privileges, knowledge of patient current condition, hospital course, and medical plan of care. Services: Services provided to patient in accordance with Admission requirements found in Title 42 Section 412.3 of the Code of Federal Regulations Patient History Date of Service: 10/06/17 Reason for admission: Diarrhea, dehydration History of Present Illness: Ms Mcknight is a 56-year-old woman with history of IBSD, migraine, hypertension , recovering from pain medication dependency, who was admitted to the hospital last week due to chest pain. She had cardiac workup which was negative including left heart catheterization showing normal coronary arteries. Today the patient come to the ER after sent several episode of diarrhea at home started today. She has been progressively weak, and according to her son, she had a syncopal episode at home. When EMS arrived, found the patient hypotensive , 70/40. She received IV fluid I was transferred to ER. At arrival her blood pressure was 86/51, afebrile. Lab work remarkable for leukocytosis, hypokalemia , elevated creatinine. The patient also has elevated troponin I and BNP, however they are lower than the last week. CT abdomen and pelvis consistent with colitis. Allergies Latex, Natural Rubber Allergy (Verified 09/30/17 16:11) Unknown onion Allergy (Verified 09/30/17 16:11) Hives Penicillins Allergy (Verified 09/30/17 16:11) Anaphylaxis morphine Adverse Reaction (Verified 09/30/17 16:11) Hives/Rash Iv dye Allergy (Uncoded 09/30/17 16:11) Anaphylaxis Sulfa (Sulfonamide Adverse Reaction (Uncoded 09/30/17 16:11) Itching/Hives/Rash Home Medications: Clidinium/Chlordiazepox [Librax*] 1 each PO QID 09/30/17 Dicyclomine [Bentyl*] 20 mg PO QID 09/30/17 Duloxetine [Cymbalta *] 60 mg PO DAILY 09/30/17 L.acidoph,Paracasei, B.lactis [Probiotic] 1 each PO DAILY 09/30/17 Pantoprazole [Protonix Tab*] 40 mg PO DAILY 09/30/17 Quetiapine [Seroquel*] 200 mg PO DAILY 09/30/17 Rosuvastatin [Crestor*] 10 mg PO BEDTIME 09/30/17 Topiramate [Topamax*] 50 mg PO BID #60 tab 10/01/17 - Past Medical/Surgical History Diabetic: No -: hyperlipidemia -: IBS -: htn -: migrane -: bowel obstruction X1 -: c-diff -: ulcerative colitis -: triny -: appy -: hysterectomy -: right elbow tendon repair - Family History Father -: Hypertension, Diabetes, Stroke, Cancer Notes: prostate Mother -: Hypertension, Stroke - Social History Smoking Status: Former smoker Alcohol use: No CD- Drugs: No Caffeine use: Yes Place of Residence: Home Review of Systems 10-point ROS is otherwise unremarkable Physical Examination - Physical Exam General: Alert, In no apparent distress HEENT: Atraumatic, PERRLA, Mucous membr. moist/pink, EOMI, Sclerae nonicteric Neck: Supple, 2+ carotid pulse no bruit, No LAD, Without JVD or thyroid abnormality Respiratory: Clear to auscultation bilaterally, Normal air movement Cardiovascular: Regular rate/rhythm, Normal S1 S2 Gastrointestinal: Hyperactive, Distended, Tenderness Musculoskeletal: No tenderness Integumentary: No rashes Neurological: Normal speech, Normal strength at 5/5 x4 extr, Normal tone, Normal affect Lymphatics: No axilla or inguinal lymphadenopathy - Studies Laboratory Data (last 24 hrs) 10/05/17 22:58: Magnesium Cancelled 10/05/17 22:50: Creatinine 1.40 H 10/05/17 22:50: WBC 13.9 H D, Hgb 14.1, Hct 41.0, Plt Count 194 D 10/05/17 22:50: Sodium 136, Potassium 2.7 L*, BUN 12, Creatinine 1.40 H, Glucose 123 H, Magnesium 1.8, Total Bilirubin 0.2, AST 26, ALT 18, Alkaline Phosphatase 120 H, Lipase 118 Assessment and Plan - Problems (Diagnosis) (1) Colitis Current Visit: Yes Status: Acute (2) Acute renal injury Current Visit: Yes Status: Acute (3) Volume depletion Current Visit: Yes Status: Acute (4) HTN (hypertension) Onset Date: 10/01/17 Current Visit: No Status: Chronic Qualifiers: Hypertension type: essential hypertension Qualified Code(s): I10 - Essential (primary) hypertension (5) Hypokalemia Current Visit: Yes Status: Acute - Plan The patient will be admitted to the hospital due to acute colitis, volume depletion and electrolyte disturbance. Due to her dehydration, her blood pressure was low, which will most likely the etiology of her syncopal episodes. BP has been increasing with volume replacement. She remained afebrile. Will order C diff screening, start empiric IV Cipro and Flagyl. Will replace electrolytes as needed per protocol. - Advance Directives Does patient have a Living Will: No Does patient have a Durable POA for Healthcare: No - Code Status/Comfort Care Code Status Assessed: Yes Code Status: Full Code
[2017-10-06] MEDS ORDERED: CIPROFLOXACIN 400mg IV 400 MG/200 ML BAG IV ONE (02:12)
[2017-10-06] MEDS ORDERED: METRONIDAZOLE 500mg IVPB 500 MG/100 ML BAG IV ONE (02:12)
[2017-10-06] MEDS ORDERED: ONDANSETRON 4 MG/2 ML VIAL IV PRN (02:50)
[2017-10-06] MEDS ORDERED: ACETAMINOPHEN 500 MG TAB PO PRN (02:50)
[2017-10-06 02:55] VITALS: BMI 23.6
[2017-10-06] MEDS: NA CHLORIDE 0.9% 1,000 ML IV SCH ×3 (03:55→20:14)
--- NOTE | 2017-10-06 06:28 | EKG ---
Test Date: 2017-10-05 Test Time: 22:59:57 Billing Department Supervisor: CANDE MEASUREMENT RESULTS: Intervals: Rate: 94 SD: 166 QRSD: 160 QT: 452 QTc: 565 [place]: P: 59 SD: 166 QRS: 64 T: 235 INTERPRETIVE STATEMENTS: Normal sinus rhythm Left bundle branch block Abnormal ECG Compared to ECG 09/30/2017 12:59:57 No significant changes Electronically Signed On 10-06-17 06:27:57 CDT by Satish Loyd
[2017-10-06] MEDS: FENTANYL CITR 100 MCG/2 ML IV PRN (06:47)
[2017-10-06] MEDS: KCL 20 MEQ/100 mL IVPB 20 MEQ/100 ML BAG IV SCH ×3 (08:55→13:12)
[2017-10-06] MEDS: METRONIDAZOLE 500mg IVPB 500 MG/100 ML BAG IV SCH ×2 (08:55→16:38)
--- NOTE | 2017-10-06 11:39 | RAD REPORT ---
EXAM DESCRIPTION: CT - Abdomen Pelvis Wo Contrast - 10/06/2017 3:30 am CLINICAL HISTORY: Abdominal pain. allergy to dye;Abd pain COMPARISON: <Comparisons> TECHNIQUE: CT imaging of the abdomen and pelvis was performed without contrast. Solid organ, bowel a nd vascular assessment is limited due to lack of IV and oral contrast. All CT scans are performed using dose optimization technique as appropriate and may include automated exposure control or mA/KV adjustment according to patient size. FINDINGS: The lower lung galindo are clear. The liver, spleen, pancreas, adrenal glands and kidneys are within normal limits for a limited non-co ntrast examination. No bowel obstruction, free air, free fluid or abscess. Mild thickening of the descending colon is maddy pected. Focal caliber change in the transverse colon left abdomen is noted (image 40/93). Appendectom y appear The osseous structures are within normal limits. IMPRESSION: Mild descending colitis is suspected. Focal caliber change in the transverse colon is se en in the left abdomen. Recommend colonoscopy assessment for further evaluation of this region. A limited non-contrast examination was performed as detailed.
[2017-10-06] MEDS: OXYCODONE HCL 5 MG TAB PO PRN ×2 (11:47→18:12)
[2017-10-06] MEDS: CIPROFLOXACIN 400mg IV 400 MG/200 ML BAG IV SCH ×2 (14:04→20:09)
[2017-10-06 21:12] LABS: Urine Appearance CLEAR; Urine Bilirubin NEGATIVE (NEG); Urine Blood NEGATIVE (NEG); Urine Color YELLOW; Urine Glucose NEGATIVE (NEG); Urine Protein NEGATIVE (NEG); Urine Urobilinogen 0.2 mg/dL (0.2-1.0)
[2017-10-06] MEDS: QUETIAPINE 100MG TAB PO SCH (22:00)
[2017-10-06 22:36] LABS: Urine Bacteria 20-50 /HPF (<20); Urine Culture Reflex Order NOT NEEDED; Urine RBC <5 /HPF (NONE SEEN)
[2017-10-07] MEDS: METRONIDAZOLE 500mg IVPB 500 MG/100 ML BAG IV SCH ×3 (00:20→16:27)
[2017-10-07 05:11] LABS: Absolute Lymphocytes (CBC) 1.4 K/uL (0.7-4.9); Absolute Monocytes 0.3 K/uL (0.1-1.3); Absolute Neutrophil 3.2 K/uL (1.8-8.0); Basophils % 0.2 % (0-1.3); Eosinophils % 6.7 % (0-4.4); Hematocrit 31.7 % (36.0-45.0); Lymphocytes % 27.1 % (15.3-44.8); MCH 32.9 pg (27.0-35.0); MCV 92.1 fL (80-100); MPV 7.2 fL (7.6-11.3); Monocytes % 5.9 % (3.3-12.3); RBC Red Blood Cell Count 3.45 M/uL (3.86-4.86)
[2017-10-07 05:39] LABS: Albumin 2.8 g/dL (3.4-5.0); Bilirubin Total 0.4 mg/dL (0.2-1.0); Potassium 4.3 mmol/L (3.5-5.1); Protein, Total 5.7 g/dL (6.4-8.2)
[2017-10-07] MEDS: NA CHLORIDE 0.9% 1,000 ML IV SCH ×2 (08:24→18:00)
[2017-10-07] MEDS: FENTANYL CITR 100 MCG/2 ML IV PRN ×3 (08:26→17:59)
[2017-10-07] MEDS: CIPROFLOXACIN 400mg IV 400 MG/200 ML BAG IV SCH ×2 (08:27→20:12)
[2017-10-07] MEDS: DICYCLOMINE HCL 10 MG CAP PO SCH ×3 (14:47→20:14)
--- NOTE | 2017-10-07 19:01 | PN ---
Date of Progress Note: 10/07/2017 Subjective: The patient seen and examined. Chart reviewed and case discussed with RN. The patient complains of abdominal pain and some nausea. No vomiting. Review of Systems: Negative except as above. Medications: List reviewed. Physical Examination: Vital signs: Temp is 98.7, heart rate 82, blood pressure 120/72, respirations 18, O2 98% on room air . General: Awake, alert, oriented x3, in some mild distress, appears older than stated age female, ill -appearing. CV: S1 and S2. No murmurs. Regular rate and rhythm. Peripheral pulses present. Respiratory: Moving air well bilaterally. No wheezing. No stridor. No use of accessory muscles. Gastrointestinal: Abdomen is soft. Tenderness to palpation. No guarding or rigidity. No rebound o r voluntary guarding. Bowel sounds are hypoactive. No distention. Extremities: No clubbing, cyanosis, edema. Neurologic: Nonfocal. Laboratory Data: Sodium 140, potassium 4.3, chloride 113, CO2 21, BUN 7, creatinine 0.9, glucose 95, calcium 8.3, total bilirubin 0.4, AST 24, ALT 15. Troponin 0.29 and 0.34, albumin 2.8. WBC 5.3, H and H 11.3 and 31.7, platelets 120. EKG shows normal sinus rhythm, left bundle-branch block. Compared to EKG from 09/30/2017, no signifi cant changes. Rate of 94. Abdominal pelvis CT shows mild descending colitis, focal caliber change in the transverse colon seen in the left abdomen. Recommend colonoscopy in this region for further evaluation. No obstruction. Assessment And Plan: A 56-year-old female with: 1.Acute colitis on the left transverse colon. We will continue with IV antibiotics. GI has been co nsulted. The patient will likely need colonoscopy as an outpatient. Acute inflammation has resolved . 2.Acute kidney injury, resolved. We will continue to monitor creatinine level. Continue with IV fl uids. 3.Hypokalemia, corrected. 4.Elevated troponin level, unclear etiology. No chest pain. No signs of acute coronary syndrome. We will obtain echocardiogram and consult Cardiology. 5.Essential hypertension, stable. 6.Volume depletion. Continue IV fluids. 7.Irritable bowel syndrome with diarrhea, predominant symptoms. 8.Migraine headaches, chronic. Plan: Consult GI and Cardiology, left bundle branch block. /ELIANE Voice ID: [id number] Report ID: [id number]
[2017-10-07 20:04] VITALS: O2SAT 99
[2017-10-07] MEDS: TOPIRAMATE 25 MG TAB PO SCH (20:14)
[2017-10-07] MEDS: QUETIAPINE 100MG TAB PO SCH (20:15)
--- NOTE | 2017-10-07 20:54 | CON ---
History Of Present Illness: Ms. Mcknight came to the hospital. She was syncopal after having severa l days of severe diarrhea. This is something she goes through periodically with her inflammatory bow el disease. She became unconscious, had a blood pressure of 70, was brought to the ER. She had trop onin levels drawn, even though she was not having chest pain. She has a chronic left bundle-branch b lock and the troponins were elevated, so I was asked to see her 1 week ago tomorrow. We did a cardia c cath on her. Her arteries are very normal, nothing wrong with them at all. Her ejection fraction was normal. She does not have congestive heart failure or coronary heart disease. The cause for her syncope was profound volume depletion from severe diarrhea and low blood pressure, not an acute yumi nary syndrome, not an arrhythmia, not anything that requires further cardiac evaluation. Physical Examination: Vital signs: 5 feet 7 inches, 151 pounds. Blood pressure 120/72, pulse 82, temperature 98.7. HEENT: Normal. Lungs: Clear. Abdomen: She still has abdominal pain, still has bouts of diarrhea, but not as bad as yesterday. Extremities: Distal pulses are normal. No cyanosis, clubbing, or edema. Imaging Studies: Her EKG shows left bundle branch block, unchanged. Impression: Ms. Mcknight does not require another cardiac workup at this time. AHSAN/ELIANE Voice ID: [id number] Report ID: [id number]
[2017-10-07] MEDS ORDERED: ROSUVASTATIN 10 MG TAB PO SCH (21:00)
[2017-10-08] MEDS: METRONIDAZOLE 500mg IVPB 500 MG/100 ML BAG IV SCH ×2 (00:15→09:03)
[2017-10-08] MEDS: FENTANYL CITR 100 MCG/2 ML IV PRN ×2 (02:47→09:19)
[2017-10-08] MEDS: NA CHLORIDE 0.9% 1,000 ML IV SCH ×2 (04:08→14:50)
[2017-10-08 05:13] LABS: Absolute Lymphocytes (CBC) 1.5 K/uL (0.7-4.9); Absolute Monocytes 0.4 K/uL (0.1-1.3); Absolute Neutrophil 2.2 K/uL (1.8-8.0); Basophils % 0.5 % (0-1.3); Eosinophils % 9.4 % (0-4.4); Hematocrit 33.1 % (36.0-45.0); Lymphocytes % 32.5 % (15.3-44.8); MCH 32.1 pg (27.0-35.0); MCV 91.6 fL (80-100); MPV 6.9 fL (7.6-11.3); Monocytes % 8.6 % (3.3-12.3); RBC Red Blood Cell Count 3.61 M/uL (3.86-4.86)
[2017-10-08 05:38] LABS: Bilirubin Total 0.3 mg/dL (0.2-1.0); Protein, Total 6.2 g/dL (6.4-8.2)
[2017-10-08] MEDS ORDERED: PANTOPRAZOLE 40MG TABLET PO SCH (07:30)
[2017-10-08] MEDS ORDERED: HOME MED 1 EA UNK (L.Acidoph,Paracasei, B.Lactis [Probiotic] 1 EACH) PO SCH (09:00)
[2017-10-08] MEDS ORDERED: DULOXETINE 30 MG CAP PO SCH (09:00)
[2017-10-08] MEDS ORDERED: LACTOBACILLUS/ACIDOPHILUS TAB PO SCH (09:00)
[2017-10-08] MEDS: DICYCLOMINE HCL 10 MG CAP PO SCH ×2 (09:01→14:59)
[2017-10-08] MEDS: TOPIRAMATE 25 MG TAB PO SCH (09:01)
[2017-10-08] MEDS: OXYCODONE HCL 5 MG TAB PO PRN ×2 (09:02→14:56)
[2017-10-08] MEDS: CIPROFLOXACIN 400mg IV 400 MG/200 ML BAG IV SCH (09:02)
[2017-10-08] MEDS ORDERED: HYDROCODONE/APAP 7.5/325 MG TAB PO PRN (10:52)
[2017-10-08 17:27] VITALS: BP 117/70; TEMP 97.1
--- NOTE | 2017-10-09 05:37 | DS ---
Date of Discharge: 10/08/2017 Consultants: Dr. Spears, [employer] Ref[employer]ing Manager. Admitting Diagnoses: 1. Acute colitis. 2. Acute kidney injury. 3. Volume depletion. 4. Essential hypertension. 5. Hypokalemia. Discharge Diagnoses: 1. Acute colitis of the left transverse colon, improving. 2. Acute kidney injury, resolved. 3. Hypokalemia, corrected. 4. Elevated troponin level, no acute coronary syndrome. 5. Essential hypertension. 6. Volume depletion. 7. Irritable bowel syndrome with diarrhea predominant symptoms. 8. History of migraine headaches, chronic. 9. Left bundle branch block. Consultants: Dr. Loyd with Cardiology. Hospital Course: The patient is a 56-year-old female who was recently discharged from the hospital after cardiac workup, comes in with diarrhea, dehydration, and near syncopal episode. The patient has irritable bowel syndrome with diarrhea predominant symptoms, migraine headaches, hypertension, recovering from pain medication dependency. The patient found to be hypotensive , 70s over 40s, received IV fluid boluses and blood pressure improved to 80s over 50s. She had signs of acute dehydration, and her creatinine level was elevated at 1.4. With IV fluid resuscitation creatinine normalized. She did have some elevated troponin levels, which was thought to be due to her hypotension. The patient recently had coronary catheterization with normal coronary arteries. The patient was seen by Cardiology, Dr. Loyd, did not recommend any further intervention. Her recent echocardiogram showed EF around 45% to 50%. She does have a left bundle-branch block. However, normal coronaries. No chest pain. The patient was started on IV antibiotics. Her white count resolved and corrected. CT scan of the abdomen did show some colitis mainly in the transverse colon in the left abdomen. The patient was therefore seen by GI, Dr. Spears, for further evaluation. He recommended outpatient colonoscopy once her colitis has improved. The patient was then able to tolerate a soft diet. She had no further episodes of diarrhea. No nausea or vomiting. She was then cleared for discharge from publicity consultant's standpoint. She is discharged home in a stable condition. Activity: As tolerated. Medications: As per medication reconciliation list. Diet: Nelson diet. Discharge Instructions: Follow up with primary care physician in 2-3 days. Follow up with metal trades instructor, Dr. Goldman in 2 weeks. Appointment is set for October 23, I believe. Follow up with GI, Dr. Spears, in 2 weeks. Return to ER for worsening condition. Obtain blood pressure cuff and check blood pressure prior to taking antihypertensives, hold if blood pressure less than 120 /80. Medications: As per medication reconciliation list. Physical Examination: General: Awake, alert, oriented, no acute distress. CV: S1, S2. No murmurs. Respiratory: Moving air well bilaterally. Abdomen: Soft, nontender, nondistended. Positive bowel sounds. Extremities: No clubbing, cyanosis, edema. Neurologic: Nonfocal. Total time spent DC pt was 31 minutes. /MODMamadou Voice ID: [id number] Report ID: [id number] HAYDEE
--- NOTE | 2017-10-09 06:04 | PN ---
Date of Progress Note: 10/08/2017 History Of Present Illness: Ms. Mcknight was admitted on 10/06/[address] Gonzáles. She was seen by Sandra Loyd on 10/07/2017. Ms. Mcknight had come in with colitis, probably ulcerative colitis, weaknes s, and presyncope. She is being treated with ciprofloxacin and Flagyl. She has chronic left bundle- branch block, ejection fraction about 45%. We are assuming that her symptoms are secondary to ulcera tive colitis with dizziness, weakness, and presyncope. She has just recently had a heart catheteriza tion about a week ago showing normal coronaries. I would suggest continuing her present regimen, and we will see her in the office on October 23, 2017. SWATI/ELIANE Voice ID: [id number] Report ID: [id number]
== END 2017-10-08 17:40 | disposition home or self-care (01) | DRG 392 ==
LOC: ER 22:32 → ERHOLD 10-06 01:41 → 2ND 10-06 02:18
PROVIDERS: ADMIT Internal Medicine; ATTEND Family Medicine
DX: K52.9 Noninfective gastroenteritis and colitis, unspecified (principal); N17.9 Acute kidney failure, unspecified; I44.7 Left bundle-branch block, unspecified; E87.6 Hypokalemia; R74.8 Abnormal levels of other serum enzymes; I10 Essential (primary) hypertension; E78.5 Hyperlipidemia, unspecified; K58.0 Irritable bowel syndrome with diarrhea; I95.9 Hypotension, unspecified; G43.909 Migraine, unspecified, not intractable, without status migrainosus; E86.0 Dehydration; Z91.041 Radiographic dye allergy status; Z91.040 Latex allergy status; Z88.5 Allergy status to narcotic agent; Z88.0 Allergy status to penicillin; Z88.2 Allergy status to sulfonamides; Z91.018 Allergy to other foods; Z87.891 Personal history of nicotine dependence
CPT/HCPCS: 36415; 74176; 80048; 80053; 80076; 81001; 83605; 83690; 83735; 83880; 84132; 84145; 84484; 85025; 93005; 96361; 96365; 96366; 96375; 99285; J0744; J2175; J2405; J3010; J7030